=== PATIENT | male | born 1975 | race Caucasian/White ===

== ENCOUNTER 2017-10-22 10:15 | Emergency (ER) | payer OTHER ==
[~2017-10-22] VITALS: Ht 188 cm; Wt 79.5 kg
[2017-10-22 10:22] VITALS: TEMP 98.4
[2017-10-22 12:15] VITALS: BP 131/87; PULSE 78
== END 2017-10-22 12:15 | disposition home or self-care (01) ==
LOC: COL.ER 10:15
DX: S61.213A Laceration without foreign body of left middle finger without damage to nail, initial encounter (principal); F17.210 Nicotine dependence, cigarettes, uncomplicated; W26.8XXA Contact with other sharp object(s), not elsewhere classified, initial encounter; Y92.89 Other specified places as the place of occurrence of the external cause